=== PATIENT | male | born 1995 | race Caucasian/White ===

== ENCOUNTER 2019-07-22 12:10 | Emergency (ER) | payer OTHER ==
[~2019-07-22] VITALS: Ht 185.4 cm; Wt 78.0 kg
[2019-07-22 12:44] VITALS: BP 116/91
[2019-07-22] MEDS ORDERED: TETANUS-DIPTH-ACEL PERTUSSIS 0.5ML SYR Tdap IM ONE (12:45)
[2019-07-22] MEDS ORDERED: LIDOCAINE 1% HCL (LOCAL ANESTH.) INJ 20ML MDV IJ ONE (12:45)
== END 2019-07-22 13:16 | disposition home or self-care (01) ==
LOC: ER 12:10
DX: S61.011A Laceration without foreign body of right thumb without damage to nail, initial encounter (principal); W26.9XXA Contact with unspecified sharp object(s), initial encounter; Y93.89 Activity, other specified; Y92.89 Other specified places as the place of occurrence of the external cause; Y99.8 Other external cause status
CPT/HCPCS: 12001; 90471; 90715; 99283; J2001